=== PATIENT | female | born 1980 | race Caucasian/White ===

== ENCOUNTER 2023-02-08 19:28 | Emergency (ER) | payer MEDICAID ==
[~2023-02-08] VITALS: Ht 167.6 cm; Wt 79.4 kg
[2023-02-08 19:53] VITALS: BP 92/70; PULSE 80; RESP 20; TEMP 98; O2SAT 98
[2023-02-08] MEDS ORDERED: IBUP-2213 PO (22:27)
[2023-02-08] MEDS ORDERED: ACET-503 PO (22:27)
[2023-02-08] MEDS ORDERED: CIPR500T4 PO (22:27)
[2023-02-08] MEDS ORDERED: KETOROLAC 60 MG/2 ML VIAL IM ONE (22:30)
[2023-02-08 22:59] VITALS: BP 92/70; PULSE 80; RESP 20; TEMP 98; O2SAT 98
== END 2023-02-08 22:59 | disposition home or self-care (01) ==
LOC: MED 19:28
DX: N39.0 Urinary tract infection, site not specified (principal); Z79.899 Other long term (current) drug therapy; Z79.1 Long term (current) use of non-steroidal anti-inflammatories (NSAID); Z79.2 Long term (current) use of antibiotics
CPT/HCPCS: 81025; 96372; 99283; J1885